=== PATIENT | male | born 1960 | race Caucasian/White ===

== ENCOUNTER 2018-06-16 06:05 | Day surgery (SDC) | payer BC ==
[2018-06-16] VITALS (16 sets, daily range): BP systolic 131–175; BP diastolic 68–102; PULSE 72–79; RESP 14–20; Ht 157.5 cm; Wt 79.4 kg
[~2018-06-16] VITALS: Ht 157.5 cm; Wt 79.4 kg
[2018-06-16] MEDS ORDERED: SOD CHLORIDE 0.9% 1,000 ML IV SCH (07:00)
[2018-06-16] MEDS ORDERED: CEFAZOLIN 2 GM/50 ML (PMX) 50 ML IVPB ONE (07:00)
[2018-06-16] MEDS ORDERED: BUPIVACAINE 0.25% (MPF) 30 ML INJ ONE (07:14)
--- NOTE | 2018-06-16 07:34 | PREAC ---
Date/Time of Note Date/Time of Note DATE: 06/16/18 TIME: 07:33 Anesthesia Eval and Record Evaluation Time Pre-Procedure Interview DATE: 06/16/18 TIME: 07:33 Age 58 Sex male NPO: 8 hrs Preoperative diagnosis Cholelithiasis Planned procedure Laparoscopic Cholecystectomy Past Medical History Past Medical History: Includes Pulm: Smoking Hx (1 PPD) Recreational drugs: Marijuana Surgery & Anesthesia Issues No known issue Meds Anticoagulation: No Beta Dilan within 24 hr: No Reason Beta Dilan not given: Pt. not on B-Dilan No Active Prescriptions or Reported Meds Current Medications Sodium Chloride 1,000 ml @ 75 mls/hr [id number] IV Last administered on 06/16/18at 07:21; Admin Dose 75 MLS/HR; Start 06/16/18 at 07:00; Stop 06/16/18 at 20:19 Meds reviewed: Yes Allergies Coded Allergies: No Known Drug Allergies (Unverified Allergy, Unknown, 06/16/18) Allergies Reviewed: Yes Labs/Studies Labs Reviewed: Reviewed by anesthesiologist test: N/A Studies: ECG (n/a), CXR (n/a) Pre-procedure Exam Last vitals Vital Signs Date Temp Pulse Resp B/P (MAP) Pulse Ox O2 O2 Flow FiO2 Time Delivery Rate 06/16/18 99.3 74 18 138/85 98 Room Air 07:05 (102) Airway: Adequate mouth opening, Adequate thyromental dist Mallampati: Mallampati II Teeth: Normal Lung: Normal Heart: Normal ASA Physical Status ASA physical status: 2 Emergency: None Planned Anesthetic General/MAC: ETT Nerve block: TAP (bilateral) Planned Pain Management Single shot nerve block, Parenteral pain med Pre-operative Attestations Prior to commencing anesthesia and surgery, the patient was re-evaluated, there was verification of: *The patient's identity *The results of appropriate recent lab work and preoperative vital signs *The above evaluation not changing prior to induction *Anesthetic plan, risk benefits, alternative and complications discussed with patient/family; questions answered; patient/family understands, accepts and wishes to proceed. JAMES SANCHEZ MD Jun 16, 2018 07:34
[2018-06-16] MEDS ORDERED: CEFAZOLIN 1 GM INJ ONE (07:39)
[2018-06-16] MEDS ORDERED: ROCURONIUM 50 MG INJ ONE ×2 (07:39→08:33)
[2018-06-16] MEDS ORDERED: PROPOFOL 20 ML ONE (07:39)
[2018-06-16] MEDS ORDERED: FENTAnyl 50 MCG/ML VIAL ONE (07:40)
[2018-06-16] MEDS ORDERED: MIDAZOLAM 1 MG/ML 2 ML INJ ONE (07:40)
[2018-06-16] MEDS ORDERED: ROPIVACAINE 0.5 % 30 ML VIAL ONE (07:40)
[2018-06-16] MEDS ORDERED: EPHEDrine SULFATE 50 MG/5 ML SYG IV PRN (08:00)
[2018-06-16] MEDS ORDERED: METOCLOPRAMIDE 10 MG INJ IV PRN (08:00)
[2018-06-16] MEDS ORDERED: ONDANSETRON 4 MG INJ IV PRN (08:00)
[2018-06-16] MEDS ORDERED: DIPHENHYDRAMINE 50 MG INJ IV PRN (08:00)
[2018-06-16] MEDS ORDERED: FENTAnyl 50 MCG/ML VIAL IV PRN ×3 (08:00)
[2018-06-16] MEDS ORDERED: IPRATROPIUM (NEB) 0.5 MG/2.5 ML AMP HHN PRN (08:00)
[2018-06-16] MEDS ORDERED: hydrALAzine 20 MG INJ IV PRN (08:00)
[2018-06-16] MEDS ORDERED: OXYCODONE/ACETAMINOPHEN (5/325) TAB PO PRN (08:00)
[2018-06-16] MEDS ORDERED: HYDROmorphONE 1 MG/5 ML IV SYRINGE IV PRN ×3 (08:00)
[2018-06-16] MEDS ORDERED: MEPERIDINE 25 MG INJ IV PRN (08:00)
[2018-06-16] MEDS ORDERED: ALBUTEROL 0.083% (NEB) 2.5 MG/3 ML AMP HHN PRN (08:00)
[2018-06-16] MEDS ORDERED: LABETALOL HCL 20MG INJ IV PRN (08:00)
[2018-06-16] MEDS ORDERED: SUGAMMADEX SODIUM 200 MG/2 ML VIAL IV ONE (08:16)
[2018-06-16] MEDS ORDERED: DEXAMETHASONE 4 MG/ML 5 ML INJ ONE (08:16)
[2018-06-16] MEDS ORDERED: METOCLOPRAMIDE 10 MG INJ ONE (08:16)
[2018-06-16] MEDS ORDERED: ONDANSETRON 4 MG INJ ONE (08:16)
[2018-06-16] MEDS ORDERED: KETOROLAC 30 MG INJ ONE (08:16)
[2018-06-16] MEDS ORDERED: LABETALOL HCL 20MG INJ ONE (08:34)
--- NOTE | 2018-06-16 08:43 | OPR ---
Date/Time of Note Date/Time of Note DATE: 06/16/18 TIME: 08:41 Operative Report Procedure Date: Jun 16, 2018 Preoperative Diagnosis symptomatic gallstones Postoperative Diagnosis same Operation/Procedure Performed laparoscopic cholecystectomy Surgeon see signature line [employer] none Anesthesia Type: general Estimated Blood Loss: 10 - 50 ml's Transfusion none Specimen gallbladder Grafts/Implants none Complications none Pt Condition Post Procedure: stable Indications This is a 50-year-old male with some tender gallstones. He request surgical excision of his gallbladder. Risks alternatives benefits and personally discussed the patient. Patient expressed understanding consents to the operation. Procedure Description Patient is taken to the OR and prepped and draped in usual sterile fashion. Surgical timeout was performed. IV antibiotics given. Infraumbilical transverse incision was made with a 15 blade. Dissection with cautery skin onto the fascia. The fascia was grasped with Billie's and divided with grimaces. Over the creases placed into the fascia. Timmons trocar was introduced. Pneumoperitoneum was established. Midepigastric 12 mm optical trocar was placed under direct position. Right upper quadrant upper flank 5 mm optical trochars were placed under direct physician. Upon initial inspection there are some adhesions to the gallbladder. These were taken down bluntly. The gallbladder was then aspirated due to its distention. The gallbladder appears hydropic. The gallbladder was then grasped and retracted and lateral cephalad direction. [place] graspers were used to dissect out the cystic duct and cystic artery. The critical view was established. The cystic duct is divided with the clips proximal clip distal and the divisions performed laparoscopic scissors. Cystic artery was divided to close proximal to distal divisions performed laparoscopic scissors. The gallbladder was taken off the gallbladder bed. Good hemostasis status. The gallbladder was retrieved Endo Catch bag. Suction irrigation was used to clean out the area and established hemostasis. All ports removed under direct position. Overdiuresis tied down. Skin is closed using skin moises. A tap block was provided by the anesthesiologist. Dry dressings were applied. Chuckie ROCHA Jun 16, 2018 08:43
--- NOTE | 2018-06-16 08:46 | PAC ---
Date/Time of Note Date/Time of Note DATE: 06/16/18 TIME: 08:46 Post-Anesthesia Notes Post-Anesthesia Note Last documented vital signs Vital Signs Date Temp Pulse Resp B/P (MAP) Pulse Ox O2 O2 Flow FiO2 Time Delivery Rate 06/16/18 98.1 74 18 138/85 98 Room Air 08:55 (102) Activity: WNL Respiratory function: WNL Cardiovascular function: WNL Mental status: Baseline Pain reasonably controlled: Yes Hydration appropriate: Yes Nausea/Vomiting absent: Yes JAMES SANCHEZ MD Jun 16, 2018 08:46
[2018-06-16] MEDS ORDERED: HYDROCODONE/APAP (5/325) TAB PO ONE (09:00)
--- NOTE | 2018-06-16 15:51 | RADRPT ---
Vent Rate: 70 bpm RR Interval: 856 msec MI Interval: 127 msec QRS Duration: 148 msec QT Interval: 423 msec QTC Interval: 457 msec P-R-T [place]: 55 - -57 - 17 degrees Sinus rhythm...normal P axis, V-rate 50- 99 RBBB and LAFB...QRSd >120mS, axis(-40,240) Electronically Signed By: Pierce Brandon
== END 2018-06-16 11:00 | disposition home or self-care (01) ==
LOC: SDS 06:05
PROVIDERS: ATTEND Surgery
DX: K80.20 Calculus of gallbladder without cholecystitis without obstruction (principal); N40.0 Benign prostatic hyperplasia without lower urinary tract symptoms; E78.5 Hyperlipidemia, unspecified; J44.9 Chronic obstructive pulmonary disease, unspecified; I11.0 Hypertensive heart disease with heart failure; I50.9 Heart failure, unspecified; E66.9 Obesity, unspecified; Z68.32 Body mass index [BMI] 32.0-32.9, adult
CPT/HCPCS: 47562; 88304; 93005; J0360; J0690; J1100; J1170; J1885; J2250; J2405; J2765; J2795; J3010; Z7610